=== PATIENT | female | born 1965 | race Caucasian/White ===

== ENCOUNTER → 2018-01-29 11:04 | Outpatient (REF) | payer SELFPAY | LOC: OM 11:04 | PROVIDERS: PCP General Practice; Visit Provider Nurse Practitioner Family | DX: Z02.83 Encounter for blood-alcohol and blood-drug test (principal) ==

== ENCOUNTER 2018-04-04 00:10 | Outpatient (CLI) | payer BC, SELFPAY ==
[2018-04-04 09:54] LABS: HCT 42.1 % (36.0-46.0); HGB 13.4 g/dL (12.0-15.5); Mean Corp. HGB Concentration 31.8 g/dL (32.0-36.0); Mean Corpuscular Hemoglobin 27.2 pg (27.0-33.0); Mean Corpuscular Volume 85.4 fL (80-95); Mean Platelet Volume 9.1 fL (8.0-11.0); Platelet Count 381 x1000/uL (130-400); RBC 4.93 m/cumm (4.00-5.20); RBC Distribution Width 15.1 % (11.7-14.6); White Blood Cell Count 9.11 k/cumm (4.4-10.8)
[2018-04-04 10:07] LABS: ALT 34 U/L (12-78); AST 19 U/L (15-37); Albumin 3.6 g/dL (3.4-5.0); Alkaline Phosphatase 140 U/L (46-116); Anion Gap 6.2 mmol/L (3-11); BUN 19 mg/dL (7-18); Bilirubin, Total 0.6 mg/dL (0.2-1.0); CO2 29.8 mmol/L (21.0-32.0); CREATININE 0.59 mg/dL (0.55-1.02); Calcium 8.8 mg/dL (8.5-10.1); Chloride 104 mmol/L (98-107); Glucose 98 mg/dL (70-100); Sodium 140 mmol/L (136-145); Total Protein 7.2 g/dL (6.4-8.2)
[2018-04-04 10:51] LABS: ESR 34 MM/HR (0-30)
[2018-04-06 11:27] LABS: Cholesterol 204 mg/dL (50-200); HDL Cholesterol 52 mg/dL (40-60); LDL CHOLESTEROL 138 mg/dL (<100); Triglyceride 108 mg/dL (30-150)
== END 2018-04-04 00:30 ==
PROVIDERS: PCP Nurse Practitioner Family; Referring Provider Nurse Practitioner Family; Visit Provider Internal Medicine Rheumatology
DX: M47.899 Other spondylosis, site unspecified (principal); Z79.899 Other long term (current) drug therapy; Z13.220 Encounter for screening for lipoid disorders
CPT/HCPCS: 36415; 80053; 80061; 83721; 85027; 85652; 86140

== ENCOUNTER 2018-05-13 01:53 | Outpatient (CLI) | payer BC, SELFPAY ==
[2018-05-13 08:55] LABS: Alkaline Phosphatase 125 U/L (46-116)
== END 2018-05-13 02:13 ==
PROVIDERS: PCP Nurse Practitioner Family; Visit Provider Internal Medicine Rheumatology
DX: R74.8 Abnormal levels of other serum enzymes (principal)
CPT/HCPCS: 36415; 84075

== ENCOUNTER 2018-05-20 00:32 | Outpatient (CLI) | payer BC, SELFPAY ==
--- NOTE | 2018-05-20 08:25 | DI.MAMMO_ITS ---
SYMPTOMS/DIAGNOSIS: SCREENING, Z12.39 MAMMOGRAM: Mammograms were interpreted according to the usual protocol including computer analysis with CAD system, tomosynthesis and C view imaging. The breasts are of moderate density with fairly symmetrical distribution of fibroglandular tissue. No dominant mass or clumped microcalcification is identified in either breast. Current examination is compared with the previous examinations including July 2016 and there has been no gross interval change in appearance in comparison with the previous studies. CONCLUSION: No specific evidence of malignancy at this time. Routine screening examinations are suggested at yearly intervals in this age group according to the ACS/ACR guidelines. Category 1, breast density category B. MQSA ASSESSMENT OF FINDINGS: Negative. Category 1. Patient will receive a letter notifying them of these results. BI-RADS category B. There are scattered areas of fibroglandular density.
== END 2018-05-20 00:52 ==
PROVIDERS: PCP Nurse Practitioner Family; Visit Provider Nurse Practitioner Family
DX: Z12.31 Encounter for screening mammogram for malignant neoplasm of breast (principal)
CPT/HCPCS: 77063; 77067

== ENCOUNTER 2018-05-22 16:33 | Outpatient (REF) | payer BC, SELFPAY ==
--- NOTE | 2018-05-22 15:15 | PAPFT_PTH ---
PATIENT: Jacqui Peñaloza LOC: [facility]#:[id number] AGE/SX: 53/F ROOM: RE05/22/[address]: Rhea Capps : 1965 BED: DIS: 05/22/2018 SPEC #: [id number] RECD: 05/25/18 12:42 STATUS: BREN REAaliyah #: [id number] TASHIA: 05/22/18 15:[address]: Rhea Capps DEPT: [facility] Cytology RECD BY: Ni Tomas Tissues: 1 - CX/ENDOCX FOR PAP SMEARS Procedures: PAP THIN PREP/UVM Screening HPV DNA PROBE Comments: [id number]
== END 2018-05-22 16:53 ==
LOC: NCHCN 16:33
PROVIDERS: PCP Nurse Practitioner Family; Visit Provider Nurse Practitioner Family
DX: Z12.4 Encounter for screening for malignant neoplasm of cervix (principal); Z11.51 Encounter for screening for human papillomavirus (HPV)
CPT/HCPCS: 88142; 87624

== ENCOUNTER 2018-06-29 01:33 | Outpatient (CLI) | payer BC, SELFPAY ==
[2018-06-29 09:43] LABS: Alkaline Phosphatase 124 U/L (46-116)
== END 2018-06-29 01:53 ==
PROVIDERS: PCP Nurse Practitioner Family; Visit Provider Internal Medicine Rheumatology
DX: R74.8 Abnormal levels of other serum enzymes (principal)
CPT/HCPCS: 36415; 84075

== ENCOUNTER 2018-08-16 00:08 | Outpatient (CLI) | payer BC, SELFPAY ==
[2018-08-16 10:26] LABS: ALT 32 U/L (12-78); AST 21 U/L (15-37); Albumin 3.5 g/dL (3.4-5.0); Alkaline Phosphatase 132 U/L (46-116); Anion Gap 9.3 mmol/L (3-11); BUN 15 mg/dL (7-18); Bilirubin, Total 0.5 mg/dL (0.2-1.0); C-Reactive Protein 2.14 mg/dL (0.0-0.3); CO2 29.7 mmol/L (21.0-32.0); CREATININE 0.63 mg/dL (0.55-1.02); Calcium 9.3 mg/dL (8.5-10.1); Chloride 102 mmol/L (98-107); Glucose 101 mg/dL (70-100); Potassium 4.3 mmol/L (3.5-5.1); Sodium 141 mmol/L (136-145); Total Protein 7.1 g/dL (6.4-8.2)
[2018-08-16 16:02] LABS: HCT 41.6 % (36.0-46.0); HGB 13.5 g/dL (12.0-15.5); Mean Corp. HGB Concentration 32.5 g/dL (32.0-36.0); Mean Corpuscular Hemoglobin 27.3 pg (27.0-33.0); Platelet Count 422 x1000/uL (130-400); RBC 4.95 m/cumm (4.00-5.20); RBC Distribution Width 14.7 % (11.7-14.6); White Blood Cell Count 15.17 k/cumm (4.4-10.8)
[2018-08-16 16:58] LABS: ESR 37 MM/HR (0-30)
== END 2018-08-16 00:28 ==
PROVIDERS: PCP Nurse Practitioner Family; Visit Provider Internal Medicine Rheumatology
DX: M47.899 Other spondylosis, site unspecified (principal); Z79.899 Other long term (current) drug therapy
CPT/HCPCS: 36415; 80053; 85027; 85652; 84075; 86140

== ENCOUNTER 2018-09-12 01:26 | Outpatient (CLI) | payer BC, SELFPAY ==
[2018-09-12 10:12] LABS: Abs Immature Grans 0.02 k/cumm (0.0-0.09); Absolute Basophil Count 0.02 k/cumm (0.0-0.2); Absolute Eosinophil Count 0.13 k/cumm (0.0-0.7); Absolute Lymphocyte Count 2.48 k/cumm (1.2-3.4); Absolute Monocyte Count 0.65 k/cumm (0.11-0.7); Absolute Neutrophil Count 5.17 k/cumm (1.2-6.7); Basophils % 0.2; Eosinophils % 1.5; HCT 41.1 % (36.0-46.0); HGB 13.3 g/dL (12.0-15.5); Immature Grans % 0.2; Lymphocytes % 29.3; Mean Corp. HGB Concentration 32.4 g/dL (32.0-36.0); Mean Corpuscular Hemoglobin 27.5 pg (27.0-33.0); Mean Corpuscular Volume 84.9 fL (80-95); Mean Platelet Volume 9.2 fL (8.0-11.0); Monocytes % 7.7; Neutrophils % 61.1; Platelet Count 372 x1000/uL (130-400); RBC 4.84 m/cumm (4.00-5.20); RBC Distribution Width 14.9 % (11.7-14.6); White Blood Cell Count 8.47 k/cumm (4.4-10.8)
== END 2018-09-12 01:46 ==
PROVIDERS: PCP Nurse Practitioner Family; Visit Provider Internal Medicine Rheumatology
DX: D72.829 Elevated white blood cell count, unspecified (principal)
CPT/HCPCS: 36415; 85025

== ENCOUNTER 2018-09-17 13:06 | Outpatient (CLI) | payer BC, SELFPAY ==
--- NOTE | 2018-09-17 12:52 | DI.RAD_ITS ---
SYMPTOMS/DIAGNOSIS: PRODUCTIVE COUGH PA AND LATERAL CHEST: The lungs are well expanded and free of infiltrate. There is no pleural effusion. The heart is within normal limits in size. The hilar structures, mediastinum and tracheal air column are intact. SUMMARY: Normal chest.
== END 2018-09-17 13:26 ==
PROVIDERS: PCP Nurse Practitioner Family; Visit Provider Nurse Practitioner Family
DX: R05 Cough (principal)
CPT/HCPCS: 71046

== ENCOUNTER 2018-11-01 02:03 | Outpatient (CLI) | payer BC, SELFPAY ==
[2018-11-01 09:51] LABS: Abs Immature Grans 0.02 k/cumm (0.0-0.09); Absolute Basophil Count 0.02 k/cumm (0.0-0.2); Absolute Eosinophil Count 0.15 k/cumm (0.0-0.7); Absolute Lymphocyte Count 2.68 k/cumm (1.2-3.4); Absolute Neutrophil Count 4.79 k/cumm (1.2-6.7); Basophils % 0.2; Eosinophils % 1.8; HCT 42.3 % (36.0-46.0); HGB 13.5 g/dL (12.0-15.5); Immature Grans % 0.2; Lymphocytes % 32.1; Mean Corp. HGB Concentration 31.9 g/dL (32.0-36.0); Mean Corpuscular Hemoglobin 27.3 pg (27.0-33.0); Mean Corpuscular Volume 85.5 fL (80-95); Mean Platelet Volume 9.1 fL (8.0-11.0); Monocytes % 8.4; Neutrophils % 57.3; Platelet Count 403 x1000/uL (130-400); RBC 4.95 m/cumm (4.00-5.20); RBC Distribution Width 14.9 % (11.7-14.6); White Blood Cell Count 8.36 k/cumm (4.4-10.8)
[2018-11-01 10:34] LABS: ALT 36 U/L (12-78); AST 20 U/L (15-37); Albumin 3.7 g/dL (3.4-5.0); Alkaline Phosphatase 131 U/L (46-116); Anion Gap 5.8 mmol/L (3-11); BUN 16 mg/dL (7-18); Bilirubin, Total 0.6 mg/dL (0.2-1.0); C-Reactive Protein 1.42 mg/dL (0.0-0.3); CO2 30.2 mmol/L (21.0-32.0); CREATININE 0.54 mg/dL (0.55-1.02); Calcium 8.9 mg/dL (8.5-10.1); Chloride 104 mmol/L (98-107); ESR 35 MM/HR (0-30); Glucose 98 mg/dL (70-100); Potassium 4.9 mmol/L (3.5-5.1); Sodium 140 mmol/L (136-145); Total Protein 6.8 g/dL (6.4-8.2)
== END 2018-11-01 02:23 ==
PROVIDERS: PCP Nurse Practitioner Family; Visit Provider Internal Medicine Rheumatology
DX: M47.899 Other spondylosis, site unspecified (principal); Z79.899 Other long term (current) drug therapy
CPT/HCPCS: 36415; 80053; 85652; 85025; 86140

== ENCOUNTER 2019-04-24 01:03 | Outpatient (CLI) | payer BC, SELFPAY ==
[2019-04-24 09:45] LABS: Abs Immature Grans 0.02 k/cumm (0.0-0.09); Absolute Basophil Count 0.03 k/cumm (0.0-0.2); Absolute Eosinophil Count 0.13 k/cumm (0.0-0.7); Absolute Lymphocyte Count 2.69 k/cumm (1.2-3.4); Absolute Monocyte Count 0.79 k/cumm (0.11-0.7); Absolute Neutrophil Count 6.23 k/cumm (1.2-6.7); Basophils % 0.3; Eosinophils % 1.3; HCT 42.5 % (36.0-46.0); HGB 13.5 g/dL (12.0-15.5); Immature Grans % 0.2; Lymphocytes % 27.2; Mean Corp. HGB Concentration 31.8 g/dL (32.0-36.0); Mean Corpuscular Hemoglobin 27.4 pg (27.0-33.0); Mean Corpuscular Volume 86.2 fL (80-95); Mean Platelet Volume 8.8 fL (8.0-11.0); Platelet Count 400 x1000/uL (130-400); RBC 4.93 m/cumm (4.00-5.20); RBC Distribution Width 14.9 % (11.7-14.6); White Blood Cell Count 9.89 k/cumm (4.4-10.8)
[2019-04-24 09:58] LABS: ALT 38 U/L (14-59); AST 21 U/L (15-37); CREATININE 0.66 mg/dL (0.55-1.02)
== END 2019-04-24 01:23 ==
PROVIDERS: PCP Nurse Practitioner Family; Visit Provider Internal Medicine
DX: M06.00 Rheumatoid arthritis without rheumatoid factor, unspecified site (principal); Z79.899 Other long term (current) drug therapy
CPT/HCPCS: 36415; 82565; 84450; 84460; 85025

== ENCOUNTER 2019-06-19 00:40 | Outpatient (CLI) | payer BC, SELFPAY ==
[2019-06-19 10:03] LABS: Abs Immature Grans 0.02 k/cumm (0.0-0.09); Absolute Basophil Count 0.03 k/cumm (0.0-0.2); Absolute Eosinophil Count 0.11 k/cumm (0.0-0.7); Absolute Lymphocyte Count 2.54 k/cumm (1.2-3.4); Absolute Neutrophil Count 6.32 k/cumm (1.2-6.7); Basophils % 0.3; Eosinophils % 1.1; HCT 42.1 % (36.0-46.0); HGB 13.6 g/dL (12.0-15.5); Immature Grans % 0.2; Lymphocytes % 25.9; Mean Corp. HGB Concentration 32.3 g/dL (32.0-36.0); Mean Corpuscular Hemoglobin 27.6 pg (27.0-33.0); Mean Corpuscular Volume 85.4 fL (80-95); Mean Platelet Volume 8.9 fL (8.0-11.0); Monocytes % 8.1; Neutrophils % 64.4; Platelet Count 440 x1000/uL (130-400); RBC 4.93 m/cumm (4.00-5.20); RBC Distribution Width 14.8 % (11.7-14.6); White Blood Cell Count 9.82 k/cumm (4.4-10.8)
[2019-06-19 10:13] LABS: ALT 35 U/L (14-59); AST 23 U/L (15-37); CREATININE 0.61 mg/dL (0.55-1.02)
== END 2019-06-19 01:00 ==
PROVIDERS: PCP Nurse Practitioner Family; Visit Provider Internal Medicine
DX: Z15.89 Genetic susceptibility to other disease (principal); Z79.899 Other long term (current) drug therapy
CPT/HCPCS: 36415; 82565; 84450; 84460; 85025

== ENCOUNTER 2019-07-25 12:34 | Emergency (ER) | payer BC, SELFPAY ==
[2019-07-25 12:37] VITALS: BP 123/95; PULSE 105; RESP 18; TEMP 36.7; O2SAT 97
[2019-07-25 13:46] VITALS: PULSE 98; RESP 18; O2SAT 98
--- NOTE | 2019-07-26 22:35 | ED.GENADUL_ITS ---
Discharge Plan Disposition Patient Disposition: HOME Condition: Good Discharge Details Chief Complaint: GenMedical Clinical Impression: Tendinitis Primary Care Provider: Otis Kumari ED Provider: Inés Flood Home Meds and New Rx's Prescriptions: No Action ibuprofen 200 mg tablet 800 mg PO TID PRN PRNRF: 0 Galzin 50 mg (zinc) capsule 50 mg PO DAILY RF: 0 cholecalciferol (vitamin D3) 1,000 unit capsule 1,000 unit PO DAILY RF: 0 multivitamin capsule 1 cap PO DAILY RF: 0 omeprazole 20 mg tablet,delayed release (DR/EC) 20 mg PO BID RF: 0 ondansetron HCl 4 mg tablet 4 mg PO TID PRN PRNRF: 0 prednisone 10 mg Tablet 10 mg PO ONCE RF: 0 sulfasalazine 500 mg Tablet 1,500 mg PO BID RF: 0 calcium carbonate [Calcium 600] 600 mg calcium (1,500 mg) Tablet 1,200 mg PO DAILY RF: 0 secukinumab 150 mg/mL Pen Injector 300 mg SUBCUT Q4W RF: 0 Discharge Instructions Instructions: Tendinitis (ED) Additional Instructions: Rest. Activities as tolerated. Elevate injury to prevent swelling. Ice to the area of discomfort for 15 min. 3-5 times daily. Prednisone as discussed then switch to Motrin every 8 hours with food or Tylenol every 6 hours for soreness if needed over the counter for comfort. Followup with orthopedic doctor as discussed if not improving in one week. Followup with your specialist. Return for any worsening or concerns sooner if needed. For any alarming concerns or complaints have reevalaution in the ER Referrals: Lexx Pedraza MD [ [facility] STAFF PHYSICIAN] - Discharge Data Discharge Date/Time-TO BE ENTERED AT DEPARTURE: 07/25/19 14:16 Medical Decision Making This is a 54-year-old patient with chronic pain syndrome and ankylosing spondylitis who presents to the emergency room for concern of left forearm pain. Patient's medical chart does report dry mouth and metallic taste in her mouth which she is not specifically concerned with at this time. Patient began a new medication for ankylosing spondylitis 2 months ago and attributes dry mouth and metallic taste to her new medication. Patient reports she is here for complaints of left forearm pain. Patient felt possibly this was related to ankylosing spondylitis. She did take a dose of prednisone which was on relieving of her pain. Patient does report chronic joint pain but this is asymmetric only associated with the left. Patient denies any arm swelling. Patient complains of pain only in the left forearm and wrist with occasional tingling in the left hand. Patient denies any neck pain at this time. Full range of motion of her neck. No midline tenderness of the neck. Patient is not concerned with any back pain. On review of systems patient did report of shortness of breath which she is experienced for multiple weeks. I discussed this with the patient at length and she has no interest in her shortness of breath being evaluated. Patient is only interested in her forearm being evaluated. After discussion with the patient and the is concerned that possibly her forearm is sore after pulling herself up into his truck. Patient does have reproducible forearm pain with palpation. Repro ducible with range of motion and likely is related to tendinitis. I did review her new medication and tendinitis is not noted as an adverse reaction. I do not feel imaging studies are appropriate at this time of her forearm as there is no focal trauma reported. Patient has no significant bony pain with palpation. Her splinting was offered. Patient is very agreeable with this plan of care. Ice massage and rice encouraged. Orthopedic referral provided. Patient agrees with this plan of care. Desires no additional evaluations this evening. The patient was stable and requested discharge. Prior to discharge, my usual and customary return precautions were reviewed with the patient - this included follow-up instructions and reasons to return to the Emergency Department if conditions worsens, does not improve as expected, or other new concerns arise. HPI General Date/Time Provider Initiated Documentation: 07/25/19 12:35 . HPI Narrative: Is a 54-year-old patient presenting to the emergency room for complaints of left forearm pain. Patient denies obvious injury or trauma. After discussion, at the bedside attributes her arm pain to pulling herself into his tall truck. patient reports pain from the right elbow down to the wrist. Patient is reporting tingling intermittently in the fingers which she reports throughout the fingers of the hand and no specific pattern of distribution. Denies swelling. No wounds. Patient denies any neck, shoulder or humeral pain. Patient denies any history of similar. Patient does have a history of ankylosing spondylitis and is taking a new medication in the last few months. Patient reports she is experiencing side effects from this medication specifically metallic taste in mouth and some dry mouth which she attributes to the medication. Patient reports history of significant joint pain which is how her ankylosing spondylitis affects her. Patient reports occasional bilateral joint pain and does report a flare in the last few days and did start prednisone yesterday. No significant improvement today. Patient reports she does struggle with chronic pain but is concerned as this is asymmetric pain and somewhat different than her baseline. Pain is worse with range of motion. Related Data Home Medications Medication Instructions Recorded Confirmed cholecalciferol (vitamin D3) 25 1,000 unit PO DAILY 04/03/18 07/25/19 mcg (1,000 unit) capsule ibuprofen 200 mg tablet 800 mg PO TID PRN PRN tab 04/03/18 07/25/19 multivitamin 1 cap PO DAILY 04/03/18 07/25/19 omeprazole 20 mg tablet,delayed 20 mg PO BID tab 04/03/18 07/25/19 release ondansetron HCl 4 mg tablet 4 mg PO TID PRN PRN 04/03/18 07/25/19 zinc acetate 50 mg (zinc) capsule 50 mg PO DAILY 04/03/18 07/25/19 calcium carbonate [Calcium 600] 1,200 mg PO DAILY 07/25/19 07/25/19 prednisone 10 mg PO ONCE 07/25/19 07/25/19 secukinumab 300 mg SUBCUT Q4W 07/25/19 07/25/19 sulfasalazine 1,500 mg PO BID 07/25/19 07/25/19 Allergies Allergy/AdvReac Type Severity Reaction Status Date / Time No Known Allergies Allergy Unverified 07/25/19 12:46 General Stated Complaint: GenMedical ALICE: 3 Review of Systems All systems reviewed & are unremarkable except as noted in HPI and below Constitutional Constitutional: Denies chills, Denies fever(s), Denies headache(s) and Denies malaise ENT Ears, Nose, Mouth, and Throat: Denies headache(s) and Denies neck pain Cardiovascular Cardiovascular: Reports dyspnea Respiratory Respiratory: Denies cough and Reports dyspnea Musculoskeletal Musculoskeletal: Denies abnormal gait, Denies back pain, Denies deformity, Denies joint swelling, Denies limited range of motion, Denies neck pain, Reports numbness (Intermittent) and Reports tingling (Intermittent) Integumentary/Breasts Skin/Breast: Denies erythema, Denies rash and Denies wounds Neurologic Neurologic: Denies abnormal gait, Denies headache(s), Reports numbness (Intermittent) and Reports tingling (Intermittent) [facility] Medical History Cervicalgia (Acute) Depression (Chronic) Low back pain (Acute) Obesity (Chronic) Social History Smoking/Tobacco Use Status: Never Drug use: Never Do you feel safe at home: Yes Do you feel safe in your relationship?: Yes Exam Narrative Exam Narrative: CONST: Healthy appearing patient, in no acute distress. Well hydrated. Alert and oriented. NECK: Normal visual inspection. FROM. Trachea midline. No Midline tenderness. No paraspinal tenderness. No cervical lymphadenopathy CHEST: Normal insepection of the chest. RESP: Normal respiratory effort. Speaking full sentences. No cough. No audible wheezing. No retractions. Breath sounds are clear and full, equal bilaterally. No wheezing, rhonchi or rales CARDIO: No JVD. No murmurs, regular rate and rhythm MUSCULOSKELETAL: Normal Gait. FROM of all extremities. No shoulder, humeral, elbow pain with palpation patient with left forearm pain with palpation. Pain along the forearm tendon with palpation. Pain with flexion extension of the wrist. Pain with supination pronation against resistance at the left forearm. This reproduces patient's pain. No obvious neurologic deficit through the wrist and hand. Strength intact with water quality specialist strength. Pulses intact. Sensation intact distally. Back: No cervical, thoracic or lumbar spinal tenderness with palpation. No step-offs. SKIN: Normal. Dry. No rashes. NEURO: Alert and awake. Speech clear. PSYCH: Normal affect. Cooperative. Course Vital Signs Vital signs: Vital Signs Temperature 36.7 C 07/25/19 12:37 Pulse 105 H 07/25/19 12:37 Respiratory Rate 18 07/25/19 12:37 Blood Pressure 123/95 H 07/25/19 12:37 Pulse Oximetry 97 07/25/19 12:37 Temperature 36.7 C 07/25/19 12:37 Temperature Source Temporal Artery Scan 07/25/19 12:37 Pulse 98 H 07/25/19 13:46 Respiratory Rate 18 07/25/19 13:46 Respiratory Effort 07/25/19 13:47 Respiratory Depth Normal 07/25/19 13:47 Respiratory Pattern Normal 07/25/19 13:47 Blood Pressure 123/95 H 07/25/19 12:37 Blood Pressure Position Sitting 07/25/19 12:37 Pulse Oximetry 98 07/25/19 13:46 Oxygen Delivery Method Room Air 07/25/19 13:46 Oxygen Flow Rate 0 07/25/19 13:46 Pain Level 6 07/25/19 13:58
== END 2019-07-25 14:16 | disposition home or self-care (01) ==
PROVIDERS: Emergency Provider Physician Assistant; PCP Nurse Practitioner Family
DX: M79.632 Pain in left forearm (principal); M77.9 Enthesopathy, unspecified; M45.9 Ankylosing spondylitis of unspecified sites in spine
CPT/HCPCS: 29125; 99283; L3908

== ENCOUNTER 2019-11-12 02:29 | Outpatient (CLI) | payer BC, SELFPAY ==
[2019-11-12 14:53] LABS: AST 25 U/L (15-37)
== END 2019-11-12 02:49 ==
PROVIDERS: PCP Nurse Practitioner Family; Visit Provider Internal Medicine
DX: Z79.899 Other long term (current) drug therapy (principal)
CPT/HCPCS: 36415; 84450

== ENCOUNTER 2019-12-15 04:08 | Outpatient (CLI) | payer BC, SELFPAY ==
[2019-12-15 16:29] LABS: Abs Immature Grans 0.02 k/cumm (0.0-0.09); Absolute Basophil Count 0.02 k/cumm (0.0-0.2); Absolute Eosinophil Count 0.08 k/cumm (0.0-0.7); Absolute Lymphocyte Count 2.83 k/cumm (1.2-3.4); Basophils % 0.2; Eosinophils % 0.7; HCT 41.9 % (36.0-46.0); HGB 13.7 g/dL (12.0-15.5); Immature Grans % 0.2 %; Mean Corp. HGB Concentration 32.7 g/dL (32.0-36.0); Mean Corpuscular Hemoglobin 27.5 pg (27.0-33.0); Monocytes % 6.4; Neutrophils % 68.5; Platelet Count 460 x1000/uL (130-400); RBC 4.99 m/cumm (4.00-5.20); White Blood Cell Count 11.81 k/cumm (4.4-10.8)
[2019-12-15 16:32] LABS: Absolute Monocyte Count 0.76 k/cumm (0.11-0.7); Absolute Neutrophil Count 8.09 k/cumm (1.2-6.7)
[2019-12-15 17:01] LABS: ALT 41 U/L (14-59); AST 22 U/L (15-37); CREATININE 0.91 mg/dL (0.55-1.02)
== END 2019-12-15 04:28 ==
PROVIDERS: PCP Nurse Practitioner Family; Visit Provider Internal Medicine
DX: Z79.899 Other long term (current) drug therapy (principal); Z15.89 Genetic susceptibility to other disease
CPT/HCPCS: 36415; 82565; 84450; 84460; 85025

== ENCOUNTER 2020-04-07 02:27 | Outpatient (CLI) | payer BC, SELFPAY ==
[2020-04-07 11:11] LABS: Abs Immature Grans 0.05 10^3/uL (0.0-0.06); Absolute Basophil Count 0.04 10^3/uL (0.0-0.2); Absolute Eosinophil Count 0.08 10^3/uL (0.0-0.7); Absolute Lymphocyte Count 2.67 10^3/uL (1.2-3.4); Basophils % 0.3; Eosinophils % 0.6; HCT 43.3 % (36.0-46.0); HGB 13.9 g/dL (11.2-15.7); Immature Grans % 0.4; Lymphocytes % 19.5; MCH 26.8 pg (27.0-33.0); MCHC 32.1 % (32.0-36.0); MCV 83.6 fL (80-95); MPV 8.9 fL (8.0-11.0); Monocytes % 6.9; Neutrophils % 72.3; Nucleated RBC 0 %; Platelet Count 390 10^3/uL (130-400); RBC 5.18 10^6/uL (3.93-5.22); RDW 15.7 % (11.7-14.6); RDW-SD 47.2 fL
[2020-04-07 11:14] LABS: Absolute Monocyte Count 0.95 10^3/uL (0.1-0.8); Absolute Neutrophil Count 9.91 10^3/uL (1.2-6.7)
[2020-04-07 12:16] LABS: ALT 33 U/L (14-59); AST 18 U/L (15-37); CREATININE 0.66 mg/dL (0.55-1.02)
== END 2020-04-07 02:47 ==
PROVIDERS: PCP Nurse Practitioner Family; Visit Provider Internal Medicine
DX: Z79.899 Other long term (current) drug therapy (principal); Z15.89 Genetic susceptibility to other disease
CPT/HCPCS: 36415; 82565; 84450; 84460; 85025

== ENCOUNTER 2020-04-17 16:40 | Outpatient (REF) | payer BC, SELFPAY ==
[2020-04-19 14:56] LABS: Patient Race White; SARS-CoV-2 RNA Undetected (Undetected); SARS-CoV-2 Specimen Source Nasal
== END 2020-04-17 17:00 ==
LOC: NCHCN 16:40
PROVIDERS: PCP Nurse Practitioner Family; Visit Provider Nurse Practitioner Family
DX: R05 Cough (principal)
CPT/HCPCS: U0003

== ENCOUNTER 2020-05-24 00:40 | Outpatient (CLI) | payer BC, SELFPAY ==
--- NOTE | 2020-05-24 | DI.RAD_ITS ---
EXAM: XR HIP PELVIS ADULT BL CLINICAL HISTORY: HLA B27 POSITIVE, Z15.89, ANKYLOSING SPONDYLITIS MULTIPLE SITES, M45.0 TECHNIQUE: COMPARISON: CR XR SACROILIAC JOINTS from 05/24/2020 FINDINGS: Three views of the hips and pelvis and four views the SI joints were obtained. The SI joints appear fairly well maintained with mild marginal osteophyte formation. There are are multiple attachment en thesophytes of the iliac bones bilaterally. The cartilaginous joint spaces of the hips appear fairly well maintained. Slight marginal osteophyte formation of the acetabuli is noted. Otherwise the bon es of the hips appear intact. IMPRESSION: Mild degenerative changes as described above. RADIATION DOSE DELIVERED: Total DLP
--- NOTE | 2020-05-24 | DI.RAD_ITS ---
EXAM: XR LUMBAR SPINE COMPLETE CLINICAL HISTORY: HLA B27 POSITIVE, Z15.89, ANKYLOSING SPONDYLITIS, M45.0 TECHNIQUE: COMPARISON: No exams were available for comparison FINDINGS: Five views were obtained. There is disc space narrowing throughout the lumbar spine. There is a tra nsitional L6 vertebra. There are mild endplate and facet hypertrophic changes throughout the lumbar region. There is no evidence of spondylolysis or spondylolisthesis. IMPRESSION: Degenerative changes of the lumbar spine as described above. RADIATION DOSE DELIVERED: Total DLP
== END 2020-05-24 01:00 ==
PROVIDERS: PCP Nurse Practitioner Family; Visit Provider Internal Medicine
DX: M45.0 Ankylosing spondylitis of multiple sites in spine (principal); Z15.89 Genetic susceptibility to other disease; M47.816 Spondylosis without myelopathy or radiculopathy, lumbar region; M25.572 Pain in left ankle and joints of left foot; M25.571 Pain in right ankle and joints of right foot
CPT/HCPCS: 73521; 72110; 72202

== ENCOUNTER 2020-06-02 03:53 | Outpatient (CLI) | payer BC, SELFPAY ==
--- NOTE | 2020-06-02 16:00 | DI.MAMMO_ITS ---
EXAM: MG MAMMO SCREENING CLINICAL HISTORY: SCREENING, Z12.39. TECHNIQUE: Bilateral full field digital CC and MLO mammographic images were obtained with 3D tomosyn thesis and utilizing computer aided detection (CAD). COMPARISON: Prior mammograms dating back to 2011, the most recent being April 2018. FINDINGS: There are no CAD designations. There are no new dominant masses nor malignant appearing microcalcification groups. There is no new architectural distortion nor skin thickening-retraction. IMPRESSION: No radiographic evidence of malignancy. BI-RADS Category 1 - Negative Breast Density - Category B - Scattered areas of fibroglandular density Breast density Category C or D implies that the patient has dense breast tissue. Dense breast tissue can make it harder to find cancer on a mammogram. Dense breast tissue is also associated with an incr eased risk of breast cancer. This information about the result of the mammogram report was provided to the patient to raise their awareness. Use this report when you speak with the patient about their risks for breast cancer, which includes their family history. At that time, you may recommend additional screening tests (Ultrasoun d or MRI) as these tests may add significant information. A negative radiographic report should not delay biopsy if a dominant or clinically suspicious mass is present. Up to ten percent of cancers are not identified on mammography. A negative report may reinforce clinical impression. Adenosis and dense breasts may obscure an underlying neoplasm. False positive reports average 6 to 10%. Patient will receive a letter notifying them of these results.
== END 2020-06-02 04:13 ==
PROVIDERS: PCP Nurse Practitioner Family; Visit Provider Nurse Practitioner Family
DX: Z12.31 Encounter for screening mammogram for malignant neoplasm of breast (principal)
CPT/HCPCS: 77063; 77067

== ENCOUNTER 2020-06-22 00:24 | Outpatient (CLI) | payer BC, SELFPAY ==
--- NOTE | 2020-06-22 08:26 | DI.RAD_ITS ---
EXAM: XR CHEST 2V PA LATERAL CLINICAL HISTORY: PRIOR TO DMARD/BIOLOGIC, ANKYLOSING SPONDYLITIS, M45.0, HIGH RISK MED USE TECHNIQUE: 2D digital imaging was performed. COMPARISON: CR XR CHEST 2V PA LATERAL from 09/17/2018 FINDINGS: MEDIASTINUM: Normal. HEART: Normal. PULMONARY VASCULATURE: Normal. LUNGS: Clear. PLEURAL SPACE: No pleural effusion or pneumothorax. BONE:Within normal limits for the patient's age. Degenerative changes in the thoracic spine. OTHER FINDINGS:Normal. IMPRESSION: No acute pulmonary findings. DATA REPOSITORY: RADIATION DOSE DELIVERED:
[2020-06-23 08:16] LABS: HBs Antibody, Quant 13.3 mIU/mL (See Note); Hepatitis B Surface Ab Positive (See Note)
[2020-06-23 08:25] LABS: Hepatitis B Surface Ag Negative (Negative)
[2020-06-23 09:03] LABS: Hepatitis C Ab w Rflx HCV PCR Negative (Negative)
[2020-06-24 13:33] LABS: HBe Antibody Negative (Negative)
[2020-06-26 13:29] LABS: TB Interpretation Negative (Negative)
== END 2020-06-22 00:44 ==
PROVIDERS: PCP Nurse Practitioner Family; Visit Provider Internal Medicine
DX: M45.0 Ankylosing spondylitis of multiple sites in spine (principal); Z79.899 Other long term (current) drug therapy; Z15.89 Genetic susceptibility to other disease; Z11.59 Encounter for screening for other viral diseases; Z01.84 Encounter for antibody response examination
CPT/HCPCS: 36415; 86706; 86803; 87340; 71046; 86480; 86707

== ENCOUNTER 2020-07-05 05:12 | Outpatient (CLI) | payer BC, SELFPAY ==
[2020-07-06 10:26] LABS: Hep B Core Antibody Negative (Negative)
== END 2020-07-05 05:32 ==
PROVIDERS: PCP Nurse Practitioner Family; Visit Provider Nurse Practitioner Family
DX: M45.0 Ankylosing spondylitis of multiple sites in spine (principal); Z79.899 Other long term (current) drug therapy; Z15.89 Genetic susceptibility to other disease
CPT/HCPCS: 36415; 86704

== ENCOUNTER 2020-08-21 10:18 | Outpatient (CLI) | payer BC, SELFPAY ==
[2020-08-21 11:15] LABS: ALT 39 U/L (14-59); AST 22 U/L (15-37); CREATININE 0.5 mg/dL (0.55-1.02)
[2020-08-21 12:48] LABS: Abs Immature Grans 0.05 10^3/uL (0.0-0.06); Absolute Eosinophil Count 0.11 10^3/uL (0.0-0.7); Absolute Lymphocyte Count 2.56 10^3/uL (1.2-3.4); Absolute Monocyte Count 0.67 10^3/uL (0.1-0.8); Absolute Neutrophil Count 8.48 10^3/uL (1.2-6.7); Basophils % 0.3; Eosinophils % 0.9; HGB 13.2 g/dL (11.2-15.7); Immature Grans % 0.4; Lymphocytes % 21.5; MCHC 31.4 % (32.0-36.0); MCV 85.9 fL (80-95); MPV 9.3 fL (8.0-11.0); Monocytes % 5.6; Neutrophils % 71.3; Nucleated RBC 0 %; Platelet Count 399 10^3/uL (130-400); RBC 4.89 10^6/uL (3.93-5.22); RDW 15.3 % (11.7-14.6); RDW-SD 47.8 fL
[2020-08-21 12:51] LABS: Absolute Basophil Count 0.04 10^3/uL (0.0-0.2)
== END 2020-08-21 10:19 | disposition home or self-care (01) ==
LOC: LBO 10:18
PROVIDERS: PCP Nurse Practitioner Family
DX: M06.00 Rheumatoid arthritis without rheumatoid factor, unspecified site (principal); Z79.899 Other long term (current) drug therapy
CPT/HCPCS: 36415; 82565; 84450; 84460; 85025

== ENCOUNTER 2020-11-29 03:25 | Outpatient (CLI) | payer BC, SELFPAY ==
[2020-11-29 16:44] LABS: Abs Immature Grans 0.07 10^3/uL (0.0-0.06); Absolute Basophil Count 0.06 10^3/uL (0.0-0.2); Absolute Lymphocyte Count 3.11 10^3/uL (1.2-3.4); Absolute Neutrophil Count 10.22 10^3/uL (1.2-6.7); Basophils % 0.4; Eosinophils % 1.4; HCT 41.4 % (36.0-46.0); HGB 13.4 g/dL (11.2-15.7); Immature Grans % 0.5; Lymphocytes % 21.3; MCH 27.5 pg (27.0-33.0); MCHC 32.4 % (32.0-36.0); MCV 84.8 fL (80-95); MPV 8.6 fL (8.0-11.0); Monocytes % 6.4; Nucleated RBC 0 %; Platelet Count 434 10^3/uL (130-400); RBC 4.88 10^6/uL (3.93-5.22); RDW 14.9 % (11.7-14.6); RDW-SD 45.1 fL
[2020-11-29 16:47] LABS: Absolute Monocyte Count 0.93 10^3/uL (0.1-0.8)
[2020-11-29 17:35] LABS: ALT 30 U/L (14-59); AST 18 U/L (15-37); CREATININE 0.6 mg/dL (0.55-1.02)
== END 2020-11-29 03:26 | disposition home or self-care (01) ==
LOC: LBO 03:25
PROVIDERS: PCP Nurse Practitioner Family; Visit Provider Internal Medicine
DX: Z15.89 Genetic susceptibility to other disease (principal)
CPT/HCPCS: 36415; 82565; 84450; 84460; 85025

== ENCOUNTER 2021-01-19 04:16 | Outpatient (CLI) | payer BC, SELFPAY ==
[2021-01-19 10:52] LABS: Abs Immature Grans 0.03 10^3/uL (0.0-0.06); Absolute Basophil Count 0.04 10^3/uL (0.0-0.2); Absolute Eosinophil Count 0.15 10^3/uL (0.0-0.7); Absolute Lymphocyte Count 3.22 10^3/uL (1.2-3.4); Absolute Monocyte Count 0.47 10^3/uL (0.1-0.8); Absolute Neutrophil Count 4.33 10^3/uL (1.2-6.7); Basophils % 0.5; Eosinophils % 1.8; HGB 13.5 g/dL (11.2-15.7); Immature Grans % 0.4; Lymphocytes % 39.1; MCH 27.9 pg (27.0-33.0); MCHC 32.1 % (32.0-36.0); MCV 86.8 fL (80-95); MPV 8.7 fL (8.0-11.0); Monocytes % 5.7; Neutrophils % 52.5; Nucleated RBC 0 %; Platelet Count 373 10^3/uL (130-400); RBC 4.84 10^6/uL (3.93-5.22); RDW-SD 47.5 fL; WBC 8.24 10^3/uL (4.4-10.8)
[2021-01-19 11:46] LABS: ALT 33 U/L (14-59); AST 18 U/L (15-37); CREATININE 0.5 mg/dL (0.55-1.02)
== END 2021-01-19 04:17 | disposition home or self-care (01) ==
LOC: LBO 04:17
PROVIDERS: PCP Nurse Practitioner Family; Visit Provider Internal Medicine
DX: M06.00 Rheumatoid arthritis without rheumatoid factor, unspecified site (principal); Z79.899 Other long term (current) drug therapy
CPT/HCPCS: 36415; 82565; 84450; 84460; 85025

== ENCOUNTER 2021-03-28 15:55 | Outpatient (REF) | payer BC, SELFPAY ==
[2021-03-30 12:03] LABS: COVID-19 RT-PCR UVMMC Result Negative (Negative)
== END 2021-03-28 15:56 | disposition home or self-care (01) ==
LOC: LBN 15:55
PROVIDERS: PCP Nurse Practitioner Family; Visit Provider Physician Assistant Medical
DX: Z20.822 Contact with and (suspected) exposure to COVID-19 (principal); J06.9 Acute upper respiratory infection, unspecified
CPT/HCPCS: U0003

== ENCOUNTER 2021-05-10 02:27 | Outpatient (CLI) | payer BC, SELFPAY ==
[2021-05-10 07:26] LABS: Abs Immature Grans 0.02 10^3/uL (0.0-0.06); Absolute Basophil Count 0.02 10^3/uL (0.0-0.2); Absolute Eosinophil Count 0.14 10^3/uL (0.0-0.7); Absolute Monocyte Count 0.63 10^3/uL (0.1-0.8); Absolute Neutrophil Count 4.73 10^3/uL (1.2-6.7); Basophils % 0.2; Eosinophils % 1.6; HCT 42.9 % (36.0-46.0); HGB 13.6 g/dL (11.2-15.7); Immature Grans % 0.2; Lymphocytes % 35.1; MCH 28.2 pg (27.0-33.0); MCHC 31.7 % (32.0-36.0); MCV 88.8 fL (80-95); MPV 8.9 fL (8.0-11.0); Monocytes % 7.4; Neutrophils % 55.5; Nucleated RBC 0 %; Platelet Count 369 10^3/uL (130-400); RBC 4.83 10^6/uL (3.93-5.22); RDW 14.5 % (11.7-14.6); RDW-SD 46.7 fL; WBC 8.54 10^3/uL (4.4-10.8)
[2021-05-10 09:32] LABS: ALT 35 U/L (14-59); AST 20 U/L (15-37); CREATININE 0.6 mg/dL (0.55-1.02)
== END 2021-05-10 02:28 | disposition home or self-care (01) ==
LOC: LBO 02:27
PROVIDERS: PCP Nurse Practitioner Family; Visit Provider Internal Medicine
DX: M06.0A Rheumatoid arthritis without rheumatoid factor, other specified site (principal); Z79.899 Other long term (current) drug therapy
CPT/HCPCS: 36415; 82565; 84450; 84460; 85025

== ENCOUNTER 2021-08-09 02:46 | Outpatient (CLI) | payer BC, SELFPAY ==
[2021-08-09 12:22] LABS: Abs Immature Grans 0.07 10^3/uL (0.0-0.06); Absolute Basophil Count 0.03 10^3/uL (0.0-0.2); Absolute Eosinophil Count 0.01 10^3/uL (0.0-0.7); Absolute Lymphocyte Count 1.79 10^3/uL (1.2-3.4); Absolute Monocyte Count 0.37 10^3/uL (0.1-0.8); Basophils % 0.2; Eosinophils % 0.1; HCT 46.2 % (36.0-46.0); HGB 14.8 g/dL (11.2-15.7); Immature Grans % 0.5; Lymphocytes % 12.5; MCH 28.6 pg (27.0-33.0); MCV 89.2 fL (80-95); MPV 9.3 fL (8.0-11.0); Monocytes % 2.6; Neutrophils % 84.1; Nucleated RBC 0 %; Platelet Count 256 10^3/uL (130-400); RBC 5.18 10^6/uL (3.93-5.22); RDW 14.7 % (11.7-14.6); RDW-SD 48.3 fL; WBC 14.31 10^3/uL (4.4-10.8)
[2021-08-09 12:24] LABS: Absolute Neutrophil Count 12.03 10^3/uL (1.2-6.7)
[2021-08-09 14:06] LABS: ALT 48 U/L (14-59); AST 25 U/L (15-37); CREATININE 0.6 mg/dL (0.55-1.02)
== END 2021-08-09 02:47 | disposition home or self-care (01) ==
LOC: LBO 02:46
PROVIDERS: PCP Nurse Practitioner Family; Visit Provider Internal Medicine
DX: M06.00 Rheumatoid arthritis without rheumatoid factor, unspecified site (principal); Z79.899 Other long term (current) drug therapy
CPT/HCPCS: 36415; 82565; 84450; 84460; 85025

== ENCOUNTER 2021-08-16 16:13 | Outpatient (REF) | payer BC, SELFPAY ==
[2021-08-16 16:06] LABS: Hemoglobin A1C 6.3 % (<5.7)
[2021-08-16 16:26] LABS: Anion Gap 7.8 mmol/L (3-11); BUN 21 mg/dL (7-18); CO2 28.2 mmol/L (21.0-32.0); CREATININE 0.6 mg/dL (0.55-1.02); Calcium 9.1 mg/dL (8.5-10.1); Chloride 104 mmol/L (98-107); FREE T4 1.36 ng/dL (0.76-1.46); Glucose 102 mg/dL (74-106); Potassium 4.1 mmol/L (3.5-5.1); Sodium 140 mmol/L (136-145); TSH 2.71 uIU/mL (0.36-3.74)
[2021-08-16 16:44] LABS: Calculated LDL 119 mg/dL (<100); Cholesterol 195 mg/dL (<200); HDL Cholesterol 52 mg/dL (40-60); Triglyceride 124 mg/dL (<150)
== END 2021-08-16 16:14 | disposition home or self-care (01) ==
LOC: NCHCN 16:13
PROVIDERS: PCP Nurse Practitioner Family; Visit Provider Physician Assistant
DX: R53.83 Other fatigue (principal); E66.9 Obesity, unspecified; R63.1 Polydipsia
CPT/HCPCS: 80048; 80061; 83036; 84439; 84443

== ENCOUNTER 2021-09-07 04:19 | Outpatient (CLI) | payer BC, SELFPAY ==
[2021-09-07 15:29] LABS: Abs Immature Grans 0.05 10^3/uL (0.0-0.06); Absolute Basophil Count 0.04 10^3/uL (0.0-0.2); Absolute Eosinophil Count 0.19 10^3/uL (0.0-0.7); Absolute Lymphocyte Count 3.89 10^3/uL (1.2-3.4); Absolute Monocyte Count 1.14 10^3/uL (0.1-0.8); Basophils % 0.3; Eosinophils % 1.3; HCT 42.8 % (36.0-46.0); HGB 13.9 g/dL (11.2-15.7); Immature Grans % 0.3; MCH 28.8 pg (27.0-33.0); MCHC 32.5 % (32.0-36.0); MCV 88.8 fL (80-95); MPV 8.9 fL (8.0-11.0); Monocytes % 7.9; Neutrophils % 63.2; Nucleated RBC 0 %; Platelet Count 385 10^3/uL (130-400); RBC 4.82 10^6/uL (3.93-5.22); RDW 14.6 % (11.7-14.6); RDW-SD 47.1 fL; WBC 14.42 10^3/uL (4.4-10.8)
[2021-09-07 15:30] LABS: Absolute Neutrophil Count 9.11 10^3/uL (1.2-6.7)
[2021-09-07 16:11] LABS: ALT 39 U/L (14-59); AST 20 U/L (15-37); CREATININE 0.6 mg/dL (0.55-1.02)
== END 2021-09-07 04:20 | disposition home or self-care (01) ==
LOC: LBO 04:19
PROVIDERS: PCP Nurse Practitioner Family; Visit Provider Internal Medicine
DX: Z79.899 Other long term (current) drug therapy (principal); M06.0A Rheumatoid arthritis without rheumatoid factor, other specified site
CPT/HCPCS: 36415; 82565; 84450; 84460; 85025

== ENCOUNTER 2021-09-27 04:08 | Outpatient (CLI) | payer BC, SELFPAY ==
[2021-09-27 17:04] LABS: ESR 26 mm/hr (0-30)
[2021-09-27 17:45] LABS: C-Reactive Protein 1.41 mg/dL (0.0-0.3); TSH 1.57 uIU/mL (0.36-3.74)
[2021-09-27 17:58] LABS: Vitamin D 25 Total 33.8 ng/mL (30-100)
[2021-10-12 02:10] LABS: Leptin 32 ng/mL
== END 2021-09-27 04:09 | disposition home or self-care (01) ==
LOC: LBO 04:08
PROVIDERS: PCP Nurse Practitioner Family; Visit Provider Internal Medicine
DX: M06.00 Rheumatoid arthritis without rheumatoid factor, unspecified site (principal)
CPT/HCPCS: 36415; 82306; 83520; 85652; 84443; 86140

== ENCOUNTER 2021-11-07 18:34 | Outpatient (REF) | payer BC, SELFPAY ==
[2021-11-09 11:10] LABS: COVID-19 RT-PCR UVMMC Result Negative (Negative)
== END 2021-11-07 18:35 | disposition home or self-care (01) ==
LOC: LBN 18:34
PROVIDERS: PCP Nurse Practitioner Family; Visit Provider Nurse Practitioner Family
DX: Z20.822 Contact with and (suspected) exposure to COVID-19 (principal); R05.8 Other specified cough
CPT/HCPCS: U0003

== ENCOUNTER 2021-12-14 20:56 | Outpatient (REF) | payer BC, SELFPAY ==
[2021-12-14 19:50] LABS: Hemoglobin A1C 6.3 % (<5.7)
== END 2021-12-14 20:57 | disposition home or self-care (01) ==
LOC: NCHCN 20:56
PROVIDERS: PCP Nurse Practitioner Family; Visit Provider Physician Assistant
DX: R73.03 Prediabetes (principal)
CPT/HCPCS: 83036

== ENCOUNTER 2022-01-23 04:02 | Outpatient (CLI) | payer BC, SELFPAY ==
[2022-01-23 16:47] LABS: Abs Immature Grans 0.04 10^3/uL (0.0-0.06); Absolute Basophil Count 0.04 10^3/uL (0.0-0.2); Absolute Lymphocyte Count 3.06 10^3/uL (1.2-3.4); Absolute Monocyte Count 0.88 10^3/uL (0.1-0.8); Basophils % 0.3; Eosinophils % 1.3; HCT 41.9 % (36.0-46.0); Immature Grans % 0.3; Lymphocytes % 25.8; MCH 29.4 pg (27.0-33.0); MCHC 33.4 % (32.0-36.0); MCV 88 fL (80-95); MPV 8.7 fL (8.0-11.0); Monocytes % 7.4; Neutrophils % 64.9; Platelet Count 379 10^3/uL (130-400); RBC 4.76 10^6/uL (3.93-5.22); RDW 14.5 % (11.7-14.6); RDW-SD 46.4 fL; WBC 11.87 10^3/uL (4.4-10.8)
[2022-01-23 16:57] LABS: Absolute Eosinophil Count 0.15 10^3/uL (0.0-0.7)
[2022-01-23 17:56] LABS: ALT 41 U/L (14-59); AST 27 U/L (15-37); CREATININE 0.8 mg/dL (0.55-1.02)
== END 2022-01-23 04:03 | disposition home or self-care (01) ==
LOC: LBO 04:02
PROVIDERS: PCP Nurse Practitioner Family; Visit Provider Internal Medicine
DX: M47.819 Spondylosis without myelopathy or radiculopathy, site unspecified (principal); Z79.899 Other long term (current) drug therapy
CPT/HCPCS: 36415; 82565; 84450; 84460; 85025

== ENCOUNTER 2022-03-29 09:16 | Outpatient (REF) | payer BC, SELFPAY ==
[2022-03-29 15:33] LABS: Hemoglobin A1C 6.2 % (<5.7)
[2022-03-29 15:42] LABS: ALT 37 U/L (14-59); AST 22 U/L (15-37); Albumin 3.7 g/dL (3.4-5.0); Alkaline Phosphatase 114 U/L (46-116); Anion Gap 7.7 mmol/L (3-11); BUN 24 mg/dL (7-18); Bilirubin, Total 0.7 mg/dL (0.2-1.0); CO2 29.3 mmol/L (21.0-32.0); CREATININE 0.7 mg/dL (0.55-1.02); Calcium 9.1 mg/dL (8.5-10.1); Calculated LDL 144 mg/dL (<100); Chloride 104 mmol/L (98-107); Cholesterol 215 mg/dL (<200); Estimated GFR 101.44 (mL/min/1.73m2); Glucose 101 mg/dL (74-106); HDL Cholesterol 51 mg/dL (40-60); Potassium 4.5 mmol/L (3.5-5.1); Sodium 141 mmol/L (136-145); Triglyceride 104 mg/dL (<150)
== END 2022-03-29 09:17 | disposition home or self-care (01) ==
LOC: NCHCN 09:16
PROVIDERS: PCP Physician Assistant; Visit Provider Physician Assistant
DX: R73.03 Prediabetes (principal)
CPT/HCPCS: 80053; 80061; 83036

== ENCOUNTER 2022-05-08 16:35 | Outpatient (REF) | payer BC, SELFPAY ==
[2022-05-10 12:13] LABS: COVID-19 RT-PCR UVMMC Result Negative (Negative)
== END 2022-05-08 16:36 | disposition home or self-care (01) ==
LOC: LBN 16:35
PROVIDERS: PCP Physician Assistant; Visit Provider Physician Assistant Medical
DX: R09.89 Other specified symptoms and signs involving the circulatory and respiratory systems (principal); Z20.822 Contact with and (suspected) exposure to COVID-19
CPT/HCPCS: U0003

== ENCOUNTER 2022-06-07 01:40 | Outpatient (CLI) | payer BC, SELFPAY ==
[2022-06-07 11:44] LABS: Abs Immature Grans 0.04 10^3/uL (0.0-0.06); Absolute Eosinophil Count 0.12 10^3/uL (0.0-0.7); Absolute Monocyte Count 0.83 10^3/uL (0.1-0.8); Basophils % 0.2; HCT 43.4 % (36.0-46.0); HGB 14.3 g/dL (11.2-15.7); Immature Grans % 0.3; Lymphocytes % 33.4; MCH 29.5 pg (27.0-33.0); MCHC 32.9 % (32.0-36.0); MCV 90 fL (80-95); MPV 8.8 fL (8.0-11.0); Monocytes % 6.8; Neutrophils % 58.3; Platelet Count 435 10^3/uL (130-400); RBC 4.85 10^6/uL (3.93-5.22); RDW 14.7 % (11.7-14.6); RDW-SD 47.2 fL; WBC 12.23 10^3/uL (4.4-10.8)
[2022-06-07 11:46] LABS: Absolute Basophil Count 0.02 10^3/uL (0.0-0.2); Absolute Lymphocyte Count 4.08 10^3/uL (1.2-3.4); Absolute Neutrophil Count 7.13 10^3/uL (1.2-6.7)
[2022-06-07 12:03] LABS: ALT 33 U/L (14-59); AST 19 U/L (15-37); CREATININE 0.9 mg/dL (0.55-1.02); Estimated GFR 74.57 (mL/min/1.73m2)
== END 2022-06-07 01:41 | disposition home or self-care (01) ==
PROVIDERS: PCP Physician Assistant; Visit Provider Internal Medicine
DX: Z79.899 Other long term (current) drug therapy (principal)
CPT/HCPCS: 36415; 82565; 84450; 84460; 85025

== ENCOUNTER 2022-10-03 03:33 | Outpatient (CLI) | payer BC, SELFPAY ==
[2022-10-03 07:22] LABS: Abs Immature Grans 0.03 10^3/uL (0.0-0.06); Absolute Basophil Count 0.06 10^3/uL (0.0-0.2); Absolute Eosinophil Count 0.31 10^3/uL (0.0-0.7); Absolute Lymphocyte Count 3.25 10^3/uL (1.2-3.4); Absolute Monocyte Count 0.76 10^3/uL (0.1-0.8); Basophils % 0.6; Eosinophils % 3.1; HCT 41.4 % (36.0-46.0); HGB 13.7 g/dL (11.2-15.7); Immature Grans % 0.3; Lymphocytes % 32.5; MCHC 33.1 % (32.0-36.0); MCV 88 fL (80-95); MPV 8.8 fL (8.0-11.0); Monocytes % 7.6; Neutrophils % 55.9; Platelet Count 368 10^3/uL (130-400); RBC 4.72 10^6/uL (3.93-5.22); RDW 13.8 % (11.7-14.6); RDW-SD 44.4 fL; WBC 10.01 10^3/uL (4.4-10.8)
[2022-10-03 07:49] LABS: ALT 30 U/L (14-59); AST 17 U/L (15-37); CREATININE 0.8 mg/dL (0.55-1.02); Estimated GFR 85.89 (mL/min/1.73m2)
== END 2022-10-03 03:34 | disposition home or self-care (01) ==
PROVIDERS: PCP Physician Assistant; Visit Provider Internal Medicine
DX: Z79.899 Other long term (current) drug therapy (principal); M06.0A Rheumatoid arthritis without rheumatoid factor, other specified site
CPT/HCPCS: 36415; 82565; 84450; 84460; 85025

== ENCOUNTER 2023-04-10 01:09 | Outpatient (CLI) | payer BC, SELFPAY ==
[2023-04-10 09:42] LABS: Abs Immature Grans 0.04 10^3/uL (0.0-0.06); Absolute Basophil Count 0.04 10^3/uL (0.0-0.2); Absolute Eosinophil Count 0.17 10^3/uL (0.0-0.7); Absolute Lymphocyte Count 2.68 10^3/uL (1.2-3.4); Absolute Monocyte Count 0.75 10^3/uL (0.1-0.8); Absolute Neutrophil Count 7.07 10^3/uL (1.2-6.7); Basophils % 0.4; Eosinophils % 1.6; HCT 40.8 % (36.0-46.0); HGB 13.5 g/dL (11.2-15.7); Immature Grans % 0.4; Lymphocytes % 24.9; MCH 28.8 pg (27.0-33.0); MCHC 33.1 % (32.0-36.0); MCV 87 fL (80-95); MPV 9.1 fL (8.0-11.0); Neutrophils % 65.7; Platelet Count 471 10^3/uL (130-400); RBC 4.69 10^6/uL (3.93-5.22); RDW 16.6 % (11.7-14.6); RDW-SD 51.6 fL; WBC 10.75 10^3/uL (4.4-10.8)
[2023-04-10 09:59] LABS: ALT 35 U/L (14-59); AST 23 U/L (15-37); CREATININE 0.8 mg/dL (0.55-1.02); Calculated LDL 136 mg/dL (<100); Cholesterol 208 mg/dL (<200); Estimated GFR 85.89 (mL/min/1.73m2); HDL Cholesterol 51 mg/dL (40-60); Triglyceride 105 mg/dL (<150)
== END 2023-04-10 01:10 | disposition home or self-care (01) ==
LOC: LBO 01:09
PROVIDERS: PCP Physician Assistant; Visit Provider Internal Medicine
DX: Z15.89 Genetic susceptibility to other disease (principal); M06.00 Rheumatoid arthritis without rheumatoid factor, unspecified site
CPT/HCPCS: 80061; 82565; 84450; 84460; 85025

== ENCOUNTER 2023-07-07 05:10 | Outpatient (CLI) | payer BC, SELFPAY ==
[2023-07-07 07:31] LABS: Abs Immature Grans 0.05 10^3/uL (0.0-0.06); Absolute Eosinophil Count 0.15 10^3/uL (0.0-0.7); Absolute Lymphocyte Count 2.62 10^3/uL (1.2-3.4); Absolute Monocyte Count 0.76 10^3/uL (0.1-0.8); Basophils % 0.2; Eosinophils % 1.2; HCT 38.7 % (36.0-46.0); HGB 12.5 g/dL (11.2-15.7); Immature Grans % 0.4; Lymphocytes % 21.1; MCH 29.1 pg (27.0-33.0); MCHC 32.3 % (32.0-36.0); MCV 90 fL (80-95); MPV 8.7 fL (8.0-11.0); Monocytes % 6.1; Platelet Count 438 10^3/uL (130-400); RDW 14.7 % (11.7-14.6); RDW-SD 47.7 fL; WBC 12.43 10^3/uL (4.4-10.8)
[2023-07-07 07:33] LABS: Absolute Basophil Count 0.02 10^3/uL (0.0-0.2); Absolute Neutrophil Count 8.83 10^3/uL (1.2-6.7)
[2023-07-07 08:19] LABS: ALT 30 U/L (14-59); AST 18 U/L (15-37); BUN 23 mg/dL (7-18); CREATININE 0.8 mg/dL (0.55-1.02); Calcium 8.9 mg/dL (8.5-10.1); Chloride 105 mmol/L (98-107); Estimated GFR 85.35 (mL/min/1.73m2); Glucose 111 mg/dL (74-106); Potassium 3.7 mmol/L (3.5-5.1); Sodium 138 mmol/L (136-145)
[2023-07-07 08:24] LABS: Hemoglobin A1C 6.1 % (<5.7)
== END 2023-07-07 05:11 | disposition home or self-care (01) ==
LOC: LBO 05:11
PROVIDERS: PCP Physician Assistant; Visit Provider Physician Assistant
DX: R73.03 Prediabetes (principal); I10 Essential (primary) hypertension
CPT/HCPCS: 36415; 80048; 83036; 84450; 84460; 85025

== ENCOUNTER → 2023-07-17 02:36 | Outpatient (CLI) | payer BC, SELFPAY ==
--- NOTE | 2023-07-17 | DI.MAMMO_ITS ---
Exam(s) MAMMO SCREENING EXAM: MAMMO SCREENING CLINICAL HISTORY: SCREENING FOR BREAST CANCER Z12.39 TECHNIQUE: Mammograms were interpreted according to the usual protocol including computer analysis w [employer] CAD system, tomosynthesis and C-view imaging. COMPARISON: 2015 through 2019 FINDINGS: The breasts are composed of mainly fatty density , Breast Density category A. No suspicious masses or suspicious microcalcifications are seen. No skin thickening or abnormal axillary lymph nodes are seen. There has been no significant change from prior exams. IMPRESSION: BI-RADS Category 1, Negative mammogram Yearly screening mammography is recommended. Breast Density - Category A, fatty density. A negative radiographic report should not delay biopsy if a dominant or clinically suspicious mass is present. Up to ten percent of cancers are not identified on mammography. A negative report may reinforce clinical impression. Adenosis and dense breasts may obscure an underlying neoplasm. False positive reports average 6 to 10%. Patient will receive a letter notifying them of these results.
== END ==
PROVIDERS: PCP Physician Assistant; Visit Provider Physician Assistant
DX: Z12.31 Encounter for screening mammogram for malignant neoplasm of breast (principal)
CPT/HCPCS: 77063; 77067

== ENCOUNTER 2023-11-19 05:01 | Outpatient (CLI) | payer BC, SELFPAY ==
[2023-11-19 07:47] LABS: Abs Immature Grans 0.04 10^3/uL (0.0-0.06); Absolute Basophil Count 0.04 10^3/uL (0.0-0.2); Absolute Eosinophil Count 0.16 10^3/uL (0.0-0.7); Absolute Lymphocyte Count 2.06 10^3/uL (1.2-3.4); Absolute Monocyte Count 0.66 10^3/uL (0.1-0.8); Absolute Neutrophil Count 6.13 10^3/uL (1.2-6.7); Basophils % 0.4 %; ESR 26 mm/hr (0-30); Eosinophils % 1.8 %; HCT 40.6 % (36.0-46.0); HGB 13.2 g/dL (11.2-15.7); Immature Grans % 0.4 %; Lymphocytes % 22.7 %; MCH 29.1 pg (27.0-33.0); MCHC 32.5 % (32.0-36.0); MCV 90 fL (80-95); MPV 8.6 fL (8.0-11.0); Monocytes % 7.3 %; Neutrophils % 67.4 %; Platelet Count 420 10^3/uL (130-400); RBC 4.53 10^6/uL (3.93-5.22); RDW-SD 48.2 fL; WBC 9.09 10^3/uL (4.4-10.8)
[2023-11-19 08:26] LABS: ALT 35 U/L (14-59); AST 24 U/L (15-37); C-Reactive Protein 1.79 mg/dL (<or=0.5); CREATININE 0.9 mg/dL (0.55-1.02)
== END 2023-11-19 05:02 | disposition home or self-care (01) ==
PROVIDERS: PCP Physician Assistant; Visit Provider Internal Medicine
DX: Z15.89 Genetic susceptibility to other disease (principal); M06.00 Rheumatoid arthritis without rheumatoid factor, unspecified site; M45.0 Ankylosing spondylitis of multiple sites in spine; Z79.899 Other long term (current) drug therapy
CPT/HCPCS: 36415; 85652; 82565; 84450; 84460; 85025; 86140

== ENCOUNTER 2024-03-10 03:30 | Outpatient (CLI) | payer BC, SELFPAY ==
[2024-03-10 07:56] LABS: Abs Immature Grans 0.01 10^3/uL (0.0-0.06); Absolute Basophil Count 0.02 10^3/uL (0.0-0.2); Absolute Eosinophil Count 0.05 10^3/uL (0.0-0.7); Absolute Lymphocyte Count 1.86 10^3/uL (1.2-3.4); Absolute Monocyte Count 0.52 10^3/uL (0.1-0.8); Absolute Neutrophil Count 5.25 10^3/uL (1.2-6.7); Basophils % 0.3 %; Eosinophils % 0.6 %; HCT 40.9 % (36.0-46.0); HGB 13.7 g/dL (11.2-15.7); Immature Grans % 0.1 %; Lymphocytes % 24.1 %; MCH 29.7 pg (27.0-33.0); MCHC 33.5 % (32.0-36.0); MCV 89 fL (80-95); MPV 8.6 fL (8.0-11.0); Monocytes % 6.7 %; Neutrophils % 68.2 %; Platelet Count 419 10^3/uL (130-400); RBC 4.61 10^6/uL (3.93-5.22); RDW 14.1 % (11.7-14.6); RDW-SD 45.5 fL; WBC 7.71 10^3/uL (4.4-10.8)
[2024-03-10 08:54] LABS: ALT 40 U/L (14-59); AST 26 U/L (15-37)
== END 2024-03-10 03:31 | disposition home or self-care (01) ==
PROVIDERS: PCP Physician Assistant; Referring Provider Internal Medicine; Visit Provider Internal Medicine
DX: Z79.899 Other long term (current) drug therapy (principal); M06.00 Rheumatoid arthritis without rheumatoid factor, unspecified site
CPT/HCPCS: 36415; 82565; 84450; 84460; 85025

== ENCOUNTER 2024-04-27 02:55 | Outpatient (CLI) | payer BC, SELFPAY ==
[2024-04-27 08:13] LABS: Abs Immature Grans 0.03 10^3/uL (0.0-0.06); Absolute Basophil Count 0.04 10^3/uL (0.0-0.2); Absolute Eosinophil Count 0.14 10^3/uL (0.0-0.7); Absolute Monocyte Count 0.75 10^3/uL (0.1-0.8); Absolute Neutrophil Count 8.06 10^3/uL (1.2-6.7); Basophils % 0.4 %; Eosinophils % 1.3 %; HCT 40.7 % (36.0-46.0); HGB 13.2 g/dL (11.2-15.7); Immature Grans % 0.3 %; Lymphocytes % 15.9 %; MCH 29.1 pg (27.0-33.0); MCHC 32.4 % (32.0-36.0); MCV 90 fL (80-95); MPV 9.3 fL (8.0-11.0); Neutrophils % 75.1 %; Platelet Count 345 10^3/uL (130-400); RBC 4.53 10^6/uL (3.93-5.22); RDW 14.9 % (11.7-14.6); RDW-SD 48.2 fL; WBC 10.72 10^3/uL (4.4-10.8)
[2024-04-27 09:14] LABS: ALT 36 U/L (14-59); AST 25 U/L (15-37); Albumin 3.4 g/dL (3.4-5.0); Alkaline Phosphatase 116 U/L (46-116); Anion Gap 9.9 mmol/L (3-11); BUN 17 mg/dL (7-18); CO2 28.1 mmol/L (21.0-32.0); CREATININE 0.9 mg/dL (0.55-1.02); Calcium 9.4 mg/dL (8.5-10.1); Chloride 105 mmol/L (98-107); Estimated GFR 73.64 (mL/min/1.73m2); Glucose 105 mg/dL (74-106); Potassium 4.1 mmol/L (3.5-5.1); Sodium 143 mmol/L (136-145); Total Protein 7.7 g/dL (6.4-8.2)
== END 2024-04-27 02:56 | disposition home or self-care (01) ==
LOC: LBO 02:55
PROVIDERS: PCP Physician Assistant; Visit Provider Physician Assistant
DX: E66.9 Obesity, unspecified (principal); R73.03 Prediabetes; Z15.89 Genetic susceptibility to other disease; M06.00 Rheumatoid arthritis without rheumatoid factor, unspecified site; M45.0 Ankylosing spondylitis of multiple sites in spine; Z79.899 Other long term (current) drug therapy
CPT/HCPCS: 36415; 80053; 83036; 85025

== ENCOUNTER 2024-05-21 09:25 | Outpatient (REF) | payer BC, SELFPAY ==
[2024-05-21 15:08] LABS: Hemoglobin A1C 6.1 % (<5.7)
[2024-05-21 15:11] LABS: ALT 36 U/L (14-59); AST 28 U/L (15-37); Albumin 3.6 g/dL (3.4-5.0); Alkaline Phosphatase 121 U/L (46-116); Anion Gap 10.6 mmol/L (3-11); BUN 20 mg/dL (7-18); Bilirubin, Total 0.71 mg/dL (0.2-1.0); CO2 27.4 mmol/L (21.0-32.0); Calcium 9.6 mg/dL (8.5-10.1); Calculated LDL 135 mg/dL (<100); Chloride 101 mmol/L (98-107); Cholesterol 214 mg/dL (<200); Glucose 103 mg/dL (74-106); HDL Cholesterol 52 mg/dL (40-60); Potassium 4.5 mmol/L (3.5-5.1); Sodium 139 mmol/L (136-145); Total Protein 7.8 g/dL (6.4-8.2); Triglyceride 136 mg/dL (<150)
== END 2024-05-21 09:26 | disposition home or self-care (01) ==
LOC: NCHCN 09:25
PROVIDERS: PCP Physician Assistant; Visit Provider Physician Assistant
DX: R73.03 Prediabetes (principal)
CPT/HCPCS: 80053; 80061; 83036

== ENCOUNTER 2024-06-04 13:52 | Outpatient (REF) | payer BC, SELFPAY ==
--- NOTE | 2024-06-04 11:10 | PAPFT_PTH ---
PATIENT: Jacqui Peñaloza LOC: [facility]#:[id number] AGE/SX: 59/F ROOM: RE06/04/[address]: Danny Alamo : 1965 BED: DIS: 06/04/2024 SPEC #: [id number] RECD: 06/04/24 17:32 STATUS: BREN REQ #: [id number] TASHIA: 06/04/24 11:[address]: Danny Alamo DEPT: [facility] Cytology RECD BY: Ni Tomas Tissues: 1 - CX/ENDOCX FOR PAP SMEARS Procedures: PAP THIN PREP/UVM Screening HPV DNA PROBE Comments: [id number] (HPV 16 & 18/45) (CHLAMYDIA/GC)
[2024-06-07 12:34] LABS: Chlamydia Result Negative (Negative); GC Result Negative (Negative)
== END 2024-06-04 13:53 | disposition home or self-care (01) ==
LOC: NCHCN 13:52
PROVIDERS: PCP Physician Assistant; Visit Provider Physician Assistant
DX: Z11.51 Encounter for screening for human papillomavirus (HPV) (principal); Z01.419 Encounter for gynecological examination (general) (routine) without abnormal findings; Z11.3 Encounter for screening for infections with a predominantly sexual mode of transmission
CPT/HCPCS: 87491; 87591; 88142; 87624

== ENCOUNTER 2024-09-14 01:30 | Outpatient (CLI) | payer BC, SELFPAY ==
[2024-09-14 07:36] LABS: ESR 14 mm/hr (0-30)
[2024-09-14 07:37] LABS: Abs Immature Grans 0.03 10^3/uL (0.0-0.06); Absolute Basophil Count 0.02 10^3/uL (0.0-0.2); Absolute Eosinophil Count 0.13 10^3/uL (0.0-0.7); Absolute Lymphocyte Count 2.32 10^3/uL (1.2-3.4); Absolute Monocyte Count 0.61 10^3/uL (0.1-0.8); Absolute Neutrophil Count 5.49 10^3/uL (1.2-6.7); Basophils % 0.2 %; Eosinophils % 1.5 %; HCT 41.6 % (36.0-46.0); HGB 13.6 g/dL (11.2-15.7); Immature Grans % 0.3 %; MCH 28.5 pg (27.0-33.0); MCHC 32.7 % (32.0-36.0); MCV 87 fL (80-95); MPV 8.8 fL (8.0-11.0); Monocytes % 7.1 %; Neutrophils % 63.9 %; Platelet Count 414 10^3/uL (130-400); RBC 4.77 10^6/uL (3.93-5.22); RDW 14.2 % (11.7-14.6); RDW-SD 45.4 fL
[2024-09-14 08:04] LABS: ALT 30 U/L (14-59); AST 18 U/L (15-37); C-Reactive Protein 1.19 mg/dL (<or=0.5); CREATININE 0.9 mg/dL (0.55-1.02); Estimated GFR 73.64 (mL/min/1.73m2)
== END 2024-09-14 01:31 | disposition home or self-care (01) ==
PROVIDERS: PCP Physician Assistant; Visit Provider Internal Medicine
DX: Z79.899 Other long term (current) drug therapy (principal); Z15.89 Genetic susceptibility to other disease
CPT/HCPCS: 36415; 85652; 82565; 84450; 84460; 85025; 86140

== ENCOUNTER 2024-11-04 01:40 | Outpatient (CLI) | payer BC, SELFPAY ==
[2024-11-04 07:47] LABS: ESR 31 mm/hr (0-30)
[2024-11-04 07:48] LABS: Abs Immature Grans 0.01 10^3/uL (0.0-0.06); Absolute Basophil Count 0.02 10^3/uL (0.0-0.2); Absolute Eosinophil Count 0.12 10^3/uL (0.0-0.7); Absolute Lymphocyte Count 1.66 10^3/uL (1.2-3.4); Absolute Monocyte Count 0.62 10^3/uL (0.1-0.8); Absolute Neutrophil Count 6.32 10^3/uL (1.2-6.7); Basophils % 0.2 %; Eosinophils % 1.4 %; HGB 13.8 g/dL (11.2-15.7); Immature Grans % 0.1 %; MCH 28.3 pg (27.0-33.0); MCHC 32.9 % (32.0-36.0); MCV 86 fL (80-95); MPV 8.4 fL (8.0-11.0); Monocytes % 7.1 %; Neutrophils % 72.2 %; Platelet Count 383 10^3/uL (130-400); RBC 4.88 10^6/uL (3.93-5.22); RDW 14.7 % (11.7-14.6); RDW-SD 45.5 fL; WBC 8.75 10^3/uL (4.4-10.8)
[2024-11-04 08:21] LABS: ALT 31 U/L (14-59); AST 23 U/L (15-37); C-Reactive Protein 1.57 mg/dL (<or=0.5); CREATININE 0.9 mg/dL (0.55-1.02); Estimated GFR 73.64 (mL/min/1.73m2)
== END 2024-11-04 01:41 | disposition home or self-care (01) ==
PROVIDERS: PCP Physician Assistant; Visit Provider Internal Medicine
DX: Z79.899 Other long term (current) drug therapy (principal); Z15.89 Genetic susceptibility to other disease
CPT/HCPCS: 36415; 85652; 82565; 84450; 84460; 85025; 86140

== ENCOUNTER 2025-02-02 02:19 | Outpatient (CLI) | payer BC, SELFPAY ==
[2025-02-02 08:41] LABS: Abs Immature Grans 0.04 10^3/uL (0.0-0.06); HCT 40.7 % (36.0-46.0); HGB 13.3 g/dL (11.2-15.7); Immature Grans % 0.4 %; MCH 29.3 pg (27.0-33.0); MCHC 32.7 % (32.0-36.0); MCV 90 fL (80-95); MPV 8.6 fL (8.0-11.0); Platelet Count 355 10^3/uL (130-400); RBC 4.54 10^6/uL (3.93-5.22); RDW 14.8 % (11.7-14.6); RDW-SD 47.7 fL; WBC 9.52 10^3/uL (4.4-10.8)
[2025-02-02 08:46] LABS: ESR 29 mm/hr (0-30)
[2025-02-02 08:53] LABS: ALT 32 U/L (14-59); AST 21 U/L (15-37); C-Reactive Protein 1.73 mg/dL (<or=0.5); Estimated GFR 84.82 (mL/min/1.73m2)
== END 2025-02-02 02:20 | disposition home or self-care (01) ==
LOC: LBO 02:19
PROVIDERS: PCP Internal Medicine; Visit Provider Internal Medicine
DX: Z79.899 Other long term (current) drug therapy (principal)
CPT/HCPCS: 36415; 85652; 82565; 84450; 84460; 85025; 86140

== ENCOUNTER 2025-03-01 16:00 | Outpatient (REF) | payer BC, SELFPAY ==
[2025-03-01 17:21] LABS: COMMENT (LAB VIEW ONLY) 279.74 mg/dL; Microalb ug/mg Crea 4.6 ug/mg Cr
== END 2025-03-01 16:01 | disposition home or self-care (01) ==
LOC: NCHCN 16:00
PROVIDERS: PCP Internal Medicine; Visit Provider Physician Assistant
DX: R80.9 Proteinuria, unspecified (principal)
CPT/HCPCS: 82043; 82570

== ENCOUNTER 2025-06-13 00:54 | Outpatient (CLI) | payer BC, SELFPAY ==
[2025-06-13 07:32] LABS: Abs Immature Grans 0.04 10^3/uL (0.0-0.06); ESR 20 mm/hr (0-30); HCT 40.4 % (36.0-46.0); HGB 13.3 g/dL (11.2-15.7); Immature Grans % 0.5 %; MCH 29.3 pg (27.0-33.0); MCHC 32.9 % (32.0-36.0); MCV 89 fL (80-95); MPV 8.5 fL (8.0-11.0); Platelet Count 389 10^3/uL (130-400); RBC 4.54 10^6/uL (3.93-5.22); RDW 14.2 % (11.7-14.6); RDW-SD 45.3 fL; WBC 8.37 10^3/uL (4.4-10.8)
[2025-06-13 07:46] LABS: Hemoglobin A1C 6.0 % (<5.7)
[2025-06-13 07:48] LABS: C-Reactive Protein 1.32 mg/dL (<=0.50)
[2025-06-13 07:50] LABS: Cholesterol 189 mg/dL (<200); HDL Cholesterol 47 mg/dL (>40)
[2025-06-13 07:52] LABS: ALT 27 U/L (10-49); AST 26 U/L (<34); Albumin 4.4 g/dL (3.2-5.0); Alkaline Phosphatase 133 U/L (46-116); Anion Gap 7.8 mmol/L (3-11); BUN 22 mg/dL (9-23); Bilirubin, Total 0.6 mg/dL (0.2-1.2); CO2 27.2 mmol/L (20.0-31.0); Calcium 8.9 mg/dL (8.3-10.6); Chloride 106 mmol/L (98-107); Glucose 112 mg/dL (74-106); Potassium 4.4 mmol/L (3.5-5.1); Sodium 141 mmol/L (136-145); Total Protein 7.4 g/dL (5.7-8.2)
[2025-06-13 07:53] LABS: TSH 2.02 uIU/mL (0.55-4.78)
== END 2025-06-13 00:55 | disposition home or self-care (01) ==
PROVIDERS: Physician Assistant; PCP Internal Medicine; Visit Provider Internal Medicine
DX: R73.03 Prediabetes (principal); E78.5 Hyperlipidemia, unspecified; I10 Essential (primary) hypertension
CPT/HCPCS: 36415; 80053; 80061; 85652; 83036; 84443; 85025; 86140